=== PATIENT | female | born 1975 | race Two or more races ===

== ENCOUNTER 2018-01-08 07:59 | Day surgery (SDC) | payer OTHER ==
[2018-01-08] MEDS ORDERED: SYNTHROID75 MCG PO (11:52)
== END 2018-01-08 13:15 | disposition home or self-care (01) ==
LOC: CIR.AMB 07:59
DX: N84.0 Polyp of corpus uteri (principal)

== ENCOUNTER 2020-07-03 10:17 | Outpatient (CLI) | payer OTHER ==
[~2020-07-03 10:17] MED LIST: SYNTHROID75 MCG PO
== END 2020-07-03 10:26 | disposition home or self-care (01) ==
LOC: MAMO-SONO 10:17
PROVIDERS: ATTEND Specialist
DX: Z12.31 Encounter for screening mammogram for malignant neoplasm of breast (principal); D25.9 Leiomyoma of uterus, unspecified; N60.11 Diffuse cystic mastopathy of right breast; E04.1 Nontoxic single thyroid nodule

== ENCOUNTER 2021-10-13 16:06 | Emergency (ER) | payer OTHER ==
[~2021-10-13] VITALS: Ht 182.9 cm; Wt 79.4 kg
== END 2021-10-13 20:41 | disposition home or self-care (01) ==
LOC: ER 16:06
DX: N93.9 Abnormal uterine and vaginal bleeding, unspecified (principal); D25.9 Leiomyoma of uterus, unspecified

== ENCOUNTER 2023-01-27 14:32 | Outpatient (CLI) | payer OTHER | END 2023-01-27 14:50 | disposition home or self-care (01) | LOC: MAMO-SONO 14:32 | PROVIDERS: ATTEND Specialist | DX: R10.2 Pelvic and perineal pain (principal); Z12.31 Encounter for screening mammogram for malignant neoplasm of breast; N63.0 Unspecified lump in unspecified breast ==

== ENCOUNTER 2024-07-04 13:51 | Outpatient (CLI) | payer OTHER ==
[~2024-07-04 13:51] MED LIST changes: +ALLERGY RELIE15.8 ML; +PEPCID AC20 MG; +PROTONIX20 MG
== END 2024-07-04 14:05 | disposition home or self-care (01) ==
LOC: MAMO-SONO 13:51
PROVIDERS: ATTEND Specialist
DX: N63.0 Unspecified lump in unspecified breast (principal); Z12.31 Encounter for screening mammogram for malignant neoplasm of breast; D25.9 Leiomyoma of uterus, unspecified